=== PATIENT | male | born 1955 | race Caucasian/White ===

== ENCOUNTER 2022-09-05 23:37 | Emergency (ER) | payer MEDICARE, SELFPAY ==
[2022-09-05 23:41] VITALS: BP 125/60; PULSE 49; RESP 18; TEMP 36.1; O2SAT 100
--- NOTE | 2022-09-05 23:47 | ECG_ITS ---
Measurements Intervals Harvey Rate: 49 P: 41 SD: 158 QRS: -11 QRSD: 120 T: 47 QT: 482 QTc: 437 Interpretive Statements SINUS BRADYCARDIA MODERATE INTRAVENTRICULAR CONDUCTION DELAY [110+ ms QRS DURATION] ABNORMAL ECG NO PREVIOUS ECG AVAILABLE FOR COMPARISON Electronically Signed On 09-06-2022 14:39:46 CDT by Juan J Rodriguez M.D.
[2022-09-05 23:49] VITALS: PULSE 49
[2022-09-06 00:07] LABS: Glucose Point of Care 61 mg/dl (65-105)
[2022-09-06 01:26] LABS: Basophils Absolute Auto 0.1 K/mm3 (0.0-0.1); Basophils Percent Auto 0.6 % (0.2-1.2); Eosinophils Percent Auto 0.3 % (0-4.4); Hematocrit 47.4 % (42.0-52.0); Hemoglobin 15.2 g/dL (14.0-18.0); Immature Granulocyte Absolute 0.07 K/mm3 (0.00-0.031); Immature Granulocyte Percent A 0.6 % (0-0.5); Lymphocytes Absolute Auto 1.44 K/mm3 (0.9-3.2); Lymphocytes Percent Auto 12.2 % (18.3-44.2); Mean Corpuscular HGB Conc 32.1 g/dl (32-36); Mean Corpuscular Hemoglobin 31.3 pg (26-34); Mean Corpuscular Volume 97.5 fl (80-100); Mean Platelet Volume 11.1 fl (7.4-10.4); Monocytes Absolute Auto 1.1 K/mm3 (0.1-0.6); Monocytes Percent Auto 9.4 % (2.6-8.5); Neutrophils Absolute Auto 9.1 K/mm3 (1.3-6.7); Neutrophils Percent Auto 76.9 % (45.5-73.1); Platelet Count Result 158 k/mm3 (150-375); Red Blood Count 4.86 M/mm3 (4.6-6.20); Red Cell Distribution Width 12.5 % (11.5-14.5); White Blood Count 11.8 K/mm3 (4.5-10.0)
[2022-09-06 01:35] LABS: Alanine Aminotransferase 55 U/L (6-50); Albumin Level 4.1 g/dL (3.5-5.1); Alkaline Phosphatase 127 U/L (38-126); Anion Gap 7 mmol/L (8-16); Aspartate Amino Transferase 46 U/L (17-59); Bilirubin,Total 0.7 mg/dL (0.2-1.3); Blood Urea Nitrogen 18 mg/dL (9-20); Calcium 9.1 mg/dL (8.4-10.2); Carbon Dioxide 25 mmol/L (22-30); Chloride 107 mmol/L (98-107); Estimated CRCL calculation 102 ml/min; Estimated Glomerular Filt Rate > 60; Glucose 78 mg/dL (65-110); Potassium 4.1 mmol/L (3.4-5.0); Sodium 139 mmol/L (137-145)
[2022-09-06 02:06] VITALS: BP 132/78; PULSE 60; RESP 14; O2SAT 100
[2022-09-06 02:07] VITALS: BP 122/66; PULSE 61
[2022-09-06 02:09] VITALS: BP 140/68; PULSE 64
[2022-09-06 02:10] VITALS: BP 129/67; PULSE 63
--- NOTE | 2022-09-06 02:19 | ED.GENADULT ---
HPI - General Adult General Chief complaint: Dizziness Stated complaint: diaphoresis at home 30 minutes prior to arrival Time Seen by Provider: 09/06/22 02:03 Source: patient and RN notes reviewed Mode of arrival: ambulatory Limitations: no limitations History of Present Illness HPI narrative: This is a 67 year old male with history of hyper lipidemia who presents for evaluation of diaphoresis. PAtient states prior to coming to the ER he developed diaphoresis lasting 30 minutes. He also reports having nausea at that time. HE denies chest pain, shortness of breath, diarrhea, vomiting or fever. He denies any complaints currently. His family states patient felt chilled earlier. He reports having normal bowel movement in ER . He denies history of DM or heart disease. He ate dinner at 5 pm. Related Data Allergies Allergy/AdvReac Type Severity Reaction Status Date / Time ibuprofen AdvReac Other Verified 09/06/22 02:07 Review of Systems Constitutional: Constitutional: Reports chills and Denies weakness Cardiovascular: Cardiovascular: Denies syncope, Denies rapid heart rate, Denies irregular heart rhythm, Denies leg edema and Denies dyspnea Respiratory: Respiratory: Denies chest congestion, Denies hemoptysis, Denies excessive phlegm production and Denies dyspnea Gastrointestinal: Gastrointestinal: Denies abdominal pain, Denies hematochezia, Denies diarrhea and Denies vomiting Genitourinary: Genitourinary: Denies hematuria, Denies dysuria, Denies penile discharge and Denies testicular pain Musculoskeletal: Musculoskeletal: Denies joint swelling, Denies loss of height and Denies muscle weakness Neurologic: Denies syncope, Denies focal weakness and Denies weakness [facility] Past Medical History Medical History (Updated 09/06/22 @ 10:30 by Georgia Ngo MD) Hyperlipidemia Hypertension Surgical History Surgical History (Updated 09/06/22 @ 10:30 by Georgia Ngo MD) H/O knee surgery Social History Social History (Updated 09/06/22 @ 10:31 by Georgia Ngo MD) Smoking status: Never smoker Exam Const: General: no acute distress and alert Nutritional Appearance: obese Orientation/consciousness: patient oriented x3 HENMT: Head: normal to inspection Face and sinus: normal facial exam and sinuses nontender Mouth: Yes Normal oral and palatal mucosa present and Yes lip normal Throat: posterior oropharynx normal Eyes: Conjunctivae: conjunctivae normal Pupils: Equal, round and reactive pupils present EOM: EOMs intact bilaterally Chest: Chest palpation & inspection: normal inspection of the chest Resp: Effort & Inspection: normal respiratory effort Auscultation: clear to auscultation bilaterally Cardio: Rate: regular rate Rhythm: regular rhythm GI: GI Palp: Yes Soft to palpation, No Tenderness to palpation present (GI), No Guarding due to palpation present (GI) and No Rigid due to palpation Auscultation: normal bowel sounds Back/Spine/Pelvis: Back: no CVA tenderness Skin: General skin exam: normal color Rashes: no rashes Wounds: no wounds Neuro: General: patient oriented x3, moves all extremities and CN's II-XI intact bilaterally Cranial nerves: Yes Nystagmus not present Speech: normal speech Extrem: General: normal to inspection Psych: Mental Status: mental status grossly normal Affect: normal affect Attitude: cooperative Course Reevaluation(s) Reevaluation #1: Patient has no complaints. I Discussed urinalysis had LE so will place on antibiotics. He may have had low blood sugar at home. I Discussed and he will follow up with PCP Date: 09/06/22 Time: 04:01 Vital Signs Vital signs: Vital Signs Temperature 97.0 F L 09/05/22 23:41 Pulse Rate 49 L 09/05/22 23:41 Respiratory Rate 18 09/05/22 23:41 Blood Pressure 125/60 09/05/22 23:41 Pulse Oximetry 100 09/05/22 23:41 Oxygen Delivery Room Air 09/05/22 23:41 Temperature 97.0 F L 09/05/22 23:41 Pulse Rate 59 L 0
[2022-09-06 02:42] LABS: Troponin I < 0.012 ng/mL (0.000-0.034)
--- NOTE | 2022-09-06 02:42 | PC.NURSE ---
Pt attempted to provide urine sample, unsuccessful.
[2022-09-06 03:00] LABS: Glucose Point of Care 81 mg/dl (65-105)
[2022-09-06 04:03] VITALS: BP 133/80; PULSE 57; RESP 17; O2SAT 100
[2022-09-06 04:07] LABS: Appearance Urine Clear (Clear); Bacteria Urine None Seen /hpf; Bilirubin Urine Negative (Negative); Blood Urine Negative (Negative); Color Urine Yellow (Yellow); Glucose Urine UA Negative (Negative); Ketones Urine Trace mg/dL (Negative); Leukocyte Esterase Ur 1+ LEU/UL (Negative); Need Manual Microscopic Reviewed; Nitrate Urine Negative (Negative); Non Pathogenic Casts 0-2; Protein Urine Negative (Negative); RBC Urine 0-2 /hpf (0-2); Specific Grav Ur 1.013 (1.001-1.035); Squamous Epithelial Cell Urine None seen /hpf (Few); WBC Urine 0-5 /hpf; pH Urine 5.5 (5.0-9.0)
[2022-09-06 04:08] LABS: Add Urine Microscopic? YES
[2022-09-06 05:15] VITALS: BP 130/76; PULSE 59; RESP 14; O2SAT 100
== END 2022-09-06 05:16 | disposition home or self-care (01) ==
PROVIDERS: Physician Assistant; Emergency Provider General Practice; PCP Internal Medicine
DX: R61 Generalized hyperhidrosis (principal); R00.1 Bradycardia, unspecified; I10 Essential (primary) hypertension; E78.5 Hyperlipidemia, unspecified
CPT/HCPCS: 36415; 80053; 81001; 82948; 84484; 85025; 93005; 99284